=== PATIENT | female | born 1990 | race Caucasian/White ===

== ENCOUNTER 2017-10-31 23:31 | Inpatient (IN) | payer OTHER ==
[2017-10-31] MEDS ORDERED: NS / Oxytocin 40 units/1000ml 1,000 ML ONE (23:44)
[2017-11-01] MEDS ORDERED: Acetaminophen 500 MG TAB PO PRN (00:17)
[2017-11-01] MEDS ORDERED: Acetaminophen/Codeine 30-300mg Tablet PO PRN ×2 (00:17→03:55)
[2017-11-01] MEDS ORDERED: Misoprostol 200 MCG TAB PR PRN (00:17)
[2017-11-01] MEDS ORDERED: HYDROcodone/Acetaminophen 5/325 mg Tablet PO PRN ×2 (00:17→03:55)
[2017-11-01] MEDS ORDERED: Ibuprofen 800 MG TAB PO PRN (00:17)
[2017-11-01] MEDS ORDERED: NS / Oxytocin 40 units/1000ml 1,000 ML IV PRN (00:17)
[2017-11-01] MEDS ORDERED: Lidocaine 1% (PF) 30 ML VIAL SC PRN (00:17)
[2017-11-01] MEDS ORDERED: Ondansetron HCl/PF 4 MG/2 ML Vial IVP PRN ×2 (00:17→03:55)
[2017-11-01] MEDS ORDERED: Promethazine HCl 25 MG/ML VIAL IM PRN (00:17)
[2017-11-01 00:52] VITALS: BMI 26.5
[2017-11-01] MEDS: Lactated Ringer's 1,000 ML IV SCH ×3 (01:05→17:43)
[2017-11-01 01:21] LABS: Hemoglobin 12.2 g/dL (12.0-16.0); Mean Corpuscular HGB CONC 35.6 g/dL (32.0-36.0); Mean Corpuscular Hemoglobin 31.8 pg (27.0-31.0); Mean Corpuscular Volume 89.3 fL (78.0-98.0); Mean Platelet Volume 8.1 fL (7.4-10.4); Platelet Count 111 thou/uL (130-400); RBC Distribution Width 11.8 % (11.5-14.5); Red Blood Cell (RBC) Count 3.83 mill/uL (4.20-5.40); White Blood Cell (WBC) Count 11.7 thou/uL (4.8-10.8)
[2017-11-01 01:41] LABS: Syphilis Antibody Nonreactive (Nonreactive); Syphilis Antibody Index 0.03 S/CO (<1.00 Non-Reactive)
[2017-11-01 02:13] LABS: HBSAg Index 0.25 S/CO (0-0.99); Hep B Surf Ag Non-Reactive S/CO (NonReactive)
[2017-11-01 02:48] LABS: Hep B Surf AB Reactive (NonReactive)
[2017-11-01 02:49] LABS: HBSAB Concentration 27.78 mIU/mL
[2017-11-01] MEDS ORDERED: traMADol HCl 50 MG TAB PO PRN (03:55)
[2017-11-01] MEDS ORDERED: Benzocaine/Menthol 20-0.5% 60 ML CAN TOP PRN (03:55)
[2017-11-01] MEDS ORDERED: NS / Oxytocin 40 units/1000ml 1,000 ML IV SCH (03:55)
[2017-11-01] MEDS ORDERED: Milk Of Magnesia 30 ML UDCUP PO PRN (03:55)
[2017-11-01] MEDS ORDERED: Lanolin Ointment 7 GM TUBE TOP PRN (03:55)
[2017-11-01] MEDS ORDERED: Bisacodyl 10 MG SUPP PR PRN (03:55)
[2017-11-01] MEDS ORDERED: Preparation H Ointment 28 GM TUBE PR PRN (03:55)
[2017-11-01] MEDS ORDERED: Ibuprofen 800 MG TAB PO SCH (06:00)
[2017-11-01] MEDS: Prenatal Vitamin 1 TAB PO SCH (09:52)
[2017-11-01] MEDS: Ibuprofen 800 MG TAB PO SCH ×2 (09:52→18:27)
[2017-11-01] MEDS: Docusate Calcium (SURFAK) 240 MG CAP PO SCH ×2 (09:53→21:40)
[2017-11-02] MEDS: Ibuprofen 800 MG TAB PO SCH ×2 (01:45→09:19)
[2017-11-02] MEDS: Lactated Ringer's 1,000 ML IV SCH ×2 (01:47→09:18)
[2017-11-02 08:58] VITALS: BP 103/63; TEMP 97.9
[2017-11-02] MEDS: Prenatal Vitamin 1 TAB PO SCH (09:19)
[2017-11-02] MEDS: Docusate Calcium (SURFAK) 240 MG CAP PO SCH (09:19)
== END 2017-11-02 13:25 | disposition home or self-care (01) | DRG 775 ==
LOC: L&D 23:31 → 3SE 11-01 03:54
PROVIDERS: ADMIT Family Medicine; ATTEND Family Medicine
DX: O62.3 Precipitate labor (principal); Z37.0 Single live birth; Z3A.38 38 weeks gestation of pregnancy
CPT/HCPCS: 36415; 85027; 86706; 86762; 86780; 86850; 86900; 86901; 87340

== ENCOUNTER 2017-11-15 22:07 | Emergency (ER) | payer OTHER | END 2017-11-15 22:58 | disposition home or self-care (01) | LOC: SCSER 22:07 | DX: O91.22 Nonpurulent mastitis associated with the puerperium (principal); O99.89 Other specified diseases and conditions complicating pregnancy, childbirth and the puerperium; H92.03 Otalgia, bilateral | CPT/HCPCS: 99283 ==